=== PATIENT | male | born 1995 | race Caucasian/White ===

== ENCOUNTER 2020-04-24 09:05 | Emergency (ER) | payer OTHER, SELFPAY ==
[2020-04-24] VITALS (7 sets, daily range): BP systolic 100–118; BP diastolic 61–78; PULSE 48–73; RESP 15–16; TEMP 36.4; O2SAT 98–100
[2020-04-24 09:27] LABS: Basophils Percent Auto 0.2 % (0.2-1.2); Eosinophils Absolute Auto 0.2 K/mm3 (0-0.3); Eosinophils Percent Auto 1.7 % (0-4.4); Hematocrit 46.7 % (42.0-52.0); Hemoglobin 16.5 g/dL (14.0-18.0); Immature Granulocyte Absolute 0.03 K/mm3 (0.00-0.031); Immature Granulocyte Percent A 0.3 % (0-0.5); Lymphocytes Absolute Auto 1.77 K/mm3 (0.9-3.2); Mean Corpuscular HGB Conc 35.3 g/dl (32-36); Mean Corpuscular Hemoglobin 33.5 pg (26-34); Mean Corpuscular Volume 94.7 fl (80-100); Mean Platelet Volume 10.1 fl (7.4-10.4); Monocytes Absolute Auto 0.7 K/mm3 (0.1-0.6); Monocytes Percent Auto 6.3 % (2.6-8.5); Neutrophils Percent Auto 76.5 % (45.5-73.1); Platelet Count Result 263 k/mm3 (150-375); Red Blood Count 4.93 M/mm3 (4.6-6.20); White Blood Count 11.8 K/mm3 (4.5-10.0)
[2020-04-24 09:39] LABS: Alanine Aminotransferase 25 U/L (4-50); Albumin Level 4.6 g/dL (3.5-5.1); Alkaline Phosphatase 49 U/L (38-126); Anion Gap 3 mmol/L (8-16); Aspartate Amino Transferase 34 U/L (17-59); Bilirubin,Total 0.6 mg/dL (0.2-1.3); Blood Urea Nitrogen 21 mg/dL (9-20); Calcium 9.5 mg/dL (8.4-10.2); Carbon Dioxide 33 mmol/L (22-30); Chloride 100 mmol/L (98-107); Estimated CRCL calculation 76 ml/min; Estimated Glomerular Filt Rate > 60; Glucose 114 mg/dL (75-110); Lipase 61 U/L (23-300); Potassium 4.1 mmol/L (3.4-5.0); Sodium 136 mmol/L (137-145)
[2020-04-24] MEDS: SODIUM CHLORIDE 0.9% IV 1,000 ML 999 ML IV CONT ×2 (09:57→11:28)
[2020-04-24] MEDS: ONDANSETRON INJ 4 MG/2 ML VIAL IV PUSH (09:57)
[2020-04-24 10:10] LABS: Add Urine Microscopic? YES; Appearance Urine Clear (Clear); Bilirubin Urine Negative (Negative); Blood Urine Negative (Negative); Color Urine Yellow (Yellow); Glucose Urine UA Negative (Negative); Ketones Urine Negative (Negative); Leukocyte Esterase Ur Negative LEU/UL (Negative); Mucus Urine Rare /lpf; Nitrate Urine Negative (Negative); Protein Urine Negative (Negative); Urobilinogen Urine Negative mg/dL (<2.0); WBC Urine 0-3 /hpf
--- NOTE | 2020-04-24 11:13 | ED.NAVMDI ---
HPI - Nausea/Vomiting/Diarrhea General Chief complaint: Nausea/Vomiting/Diarrhea Stated complaint: Multiple Complaints Time Seen by Provider: 04/24/20 09:34 Source: patient Mode of arrival: ambulatory Limitations: no limitations History of Present Illness HPI Narrative: Patient is 24 years old white male wake up this morning with nausea and frequent vomiting at least 10 time, loose stool x2, general body aches, feeling cold. Patient denies history of COVID-19 or exposure to anybody with with known COVID-19 infection. Patient reported that his and kids are doing okay and are asymptomatic. Patient denies any abdominal pain, chest pain or shortness of breath. Possible fever. Related Data Allergies Allergy/AdvReac Type Severity Reaction Status Date / Time Penicillins Allergy Unknown Unknown Verified 04/24/20 09:17 Review of Systems Review of Systems: Narrative: CONSTITUTIONAL: Denies fever, chills, or sweats. EYES: Denies visual changes, redness, or discharge. ENT: Denies rhinorrhea, congestion, sore throat, or otalgia. CARDIOVASCULAR: Denies chest pain, palpitations, or edema. RESPIRATORY: Denies cough or dyspnea. GASTROINTESTINAL: Denies abdominal pain, nausea, vomiting, or diarrhea. GENITOURINARY: Denies dysuria or hematuria. SKIN: Denies rash or itching. MUSCULOSKELETAL: Denies back pain, joint pain, or myalgia. NEUROLOGIC: Denies headache, numbness, or weakness. PSYCHIATRIC: Denies anxiety or depression. PMFSH Social History Social History Smoking status: Smoker, status unknown Alcohol intake: never Exam Narrative: Exam Narrative: General appearance: Well-developed, well-nourished Skin: Normal color Head: Normocephalic, nontraumatic Eyes: Clear conjunctiva ENT: Oropharynx normal, ears normal, nose normal Neck: Supple, nontender Chest and respiratory: Airway patent, no respiratory distress, no accessory muscle use Heart: Regular rate/rhythm Abdomen: Soft, nontender, no organomegaly, quiet bowel sounds Vascular: Normal peripheral pulses, normal capillary refill. 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 Feeling okay to go home. Date: 04/24/20 Time: 12:32 Vital Signs Vital signs: Vital Signs Temperature 36.4 C 04/24/20 09:13 Pulse Rate 58 L 04/24/20 09:13 Respiratory Rate 16 04/24/20 09:13 Blood Pressure 115/73 04/24/20 09:13 Pulse Oximetry 99 04/24/20 09:13 Temperature 36.4 C 04/24/20 09:13 Pulse Rate 53 L 04/24/20 12:22 Respiratory Rate 15 04/24/20 12:22 Blood Pressure 107/69 04/24/20 12:22 Pulse Oximetry 98 04/24/20 12:22 MDM - Nausea/Vomiting/Diarrhea MDM Narrative Medical decision making narrative: Patient presents with gastrointestinal symptoms, viral infection, COVID-19 infection is a possibility. Labs, COVID-19 test, IV fluid ordered. Further plan to follow Differential Diagnosis Differential diagnosis: Likely gastroenteritis, dehydration and other (COVID-19 infection) Lab Data Result diagrams: 04/24/20 09:21 04/24/20 09:21 Labs: Lab Results 04/24/20 04/24/20 04/24/20 Range/Units 09:21 09:21 09:54 WBC 11.8 H (4.5-10.0) K/mm3 RBC 4.93 (4.6-6.20) M/mm3 Hgb 16.5 (14.0-18.0) g/dL Hct 46.7 (42.0-52.0) % MCV 94.7 (80-100) fl MCH 33.5 (26-34) pg MCHC 35.3 (32-36) g/dl RDW 12.0 (11.5-14.5) % Plt Count 263 (1
--- NOTE | 2020-04-24 12:21 | PC.NURSE ---
Pt states he is feeling better, nausea has resolved. Pt able to keep earnest mist down w/ PO challenge. EDP made aware.
[2020-04-24 21:06] LABS: SARS-CoV-2 RNA PCR Negative
== END 2020-04-24 12:40 | disposition home or self-care (01) ==
PROVIDERS: Emergency Provider Emergency Medicine
DX: Z20.822 Contact with and (suspected) exposure to COVID-19 (principal); K52.9 Noninfective gastroenteritis and colitis, unspecified
CPT/HCPCS: 36415; 80053; 81001; 83690; 85025; 96361; 96374; 99284; C9803; J2405; J7030; U0003; U0005

== ENCOUNTER 2020-05-01 23:24 | Emergency (ER) | payer OTHER, SELFPAY ==
--- NOTE | ~2020-05-01 | CT_ITS ---
EXAMINATION: CT abdomen pelvis w con DATE: 05/02/2020 01:03 INDICATION: Right lower quadrant abdominal pain. TECHNIQUE: Computed tomography (CT) of the abdomen and pelvis was performed with 100 mL Omnipaque 350 intravenous contrast. Automated exposure control and iterative reconstruction technique were employe d. The dose-length product was 209.84 mGy-cm. COMPARISON: None. FINDINGS: The visualized portions of the lung bases demonstrate mild atelectasis. No pleural effusion . The heart size is normal. No pericardial effusion. The liver, gallbladder, spleen, pancreas, adrena l glands, and kidneys are normal. There are no dilated loops of bowel. The appendix is normal. There are no pathologically enlarged lymph nodes. There is no free intraperitoneal fluid. The bones are unr emarkable. IMPRESSION: 1. No etiology for the patient's symptoms. Reviewed, dictated and finalized at location A. [employer]
[2020-05-01 23:49] VITALS: BP 116/58; PULSE 100; RESP 20; TEMP 36.7; O2SAT 98
[2020-05-01 23:54] LABS: Basophils Absolute Auto 0.1 K/mm3 (0.0-0.1); Basophils Percent Auto 0.3 % (0.2-1.2); Eosinophils Absolute Auto 0.1 K/mm3 (0-0.3); Eosinophils Percent Auto 0.9 % (0-4.4); Hematocrit 43.9 % (42.0-52.0); Hemoglobin 15.4 g/dL (14.0-18.0); Immature Granulocyte Absolute 0.05 K/mm3 (0.00-0.031); Immature Granulocyte Percent A 0.3 % (0-0.5); Lymphocytes Absolute Auto 2.41 K/mm3 (0.9-3.2); Lymphocytes Percent Auto 16.8 % (18.3-44.2); Mean Corpuscular HGB Conc 35.1 g/dl (32-36); Mean Corpuscular Hemoglobin 33.8 pg (26-34); Mean Corpuscular Volume 96.3 fl (80-100); Mean Platelet Volume 9.9 fl (7.4-10.4); Monocytes Absolute Auto 0.9 K/mm3 (0.1-0.6); Monocytes Percent Auto 5.9 % (2.6-8.5); Neutrophils Absolute Auto 10.9 K/mm3 (1.3-6.7); Neutrophils Percent Auto 75.8 % (45.5-73.1); Platelet Count Result 259 k/mm3 (150-375); Red Blood Count 4.56 M/mm3 (4.6-6.20); White Blood Count 14.3 K/mm3 (4.5-10.0)
[2020-05-02 00:06] LABS: Alanine Aminotransferase 27 U/L (4-50); Albumin Level 4.4 g/dL (3.5-5.1); Alkaline Phosphatase 48 U/L (38-126); Anion Gap 5 mmol/L (8-16); Aspartate Amino Transferase 45 U/L (17-59); Bilirubin,Total 0.9 mg/dL (0.2-1.3); Blood Urea Nitrogen 21 mg/dL (9-20); Carbon Dioxide 35 mmol/L (22-30); Chloride 101 mmol/L (98-107); Estimated Glomerular Filt Rate > 60; Glucose 91 mg/dL (75-110); Lipase 33 U/L (23-300); Potassium 4.2 mmol/L (3.4-5.0); Sodium 141 mmol/L (137-145)
[2020-05-02 00:12] LABS: Add Urine Microscopic? YES; Appearance Urine Clear (Clear); Bilirubin Urine Negative (Negative); Blood Urine Negative (Negative); Color Urine Yellow (Yellow); Glucose Urine UA Negative (Negative); Ketones Urine 1+ mg/dL (Negative); Leukocyte Esterase Ur Negative LEU/UL (Negative); Mucus Urine Rare /lpf; Nitrate Urine Negative (Negative); Protein Urine 1+ mg/dL (Negative); RBC Urine 0-2 /hpf (0-2); Specific Grav Ur 1.025 (1.001-1.035); Squamous Epithelial Cell Urine Rare /hpf (Few); Urobilinogen Urine Negative mg/dL (<2.0); WBC Urine 0-3 /hpf
[2020-05-02] MEDS: KETOROLAC 30 MG/ML VIAL (*BKC) IV PUSH (00:41)
--- NOTE | 2020-05-02 01:23 | ED.ABDPAIN ---
HPI - Abdominal Pain General Chief Complaint: Abdominal Pain Stated Complaint: nausea vomiting abd pain Time Seen by Provider: 05/02/20 00:09 Source: patient Mode of arrival: ambulatory Limitations: no limitations History of Present Illness HPI narrative: 24-year-old with no major medical problems here with complaints of lower abdominal pain on and off for past few days. Patient states that he was at work started having severe lower abdominal cramping. He denies any nausea or vomiting. He states that occasionally he gets chills with abdominal cramping. MD elicited complaint: abdominal pain Pertinent past history: constipation Onset (ago): day(s) (1) Pain Consistency: constant Location: RLQ and LLQ Severity: moderate Quality: cramping Radiation: none Migration to: no migration Exacerbating factors: nothing Relieving factors: nothing Related Data Allergies Allergy/AdvReac Type Severity Reaction Status Date / Time Penicillins Allergy Unknown Unknown Verified 04/24/20 09:17 Review of Systems Review of Systems: All systems reviewed & are unremarkable except as noted in HPI and below Constitutional: Constitutional: Reports no additional constitutional complaints Eyes: Eyes: Reports no additional eye complaints ENT: Reports system reviewed and no additional complaints, except as documented Cardiovascular: Cardiovascular: Reports no additional cardiovascular complaints Respiratory: Respiratory: Reports no additional respiratory complaints Gastrointestinal: Gastrointestinal: Reports as per HPI Musculoskeletal: Musculoskeletal: Reports no additional musculoskeletal complaints Neurologic: Reports system reviewed and no additional complaints, except as documented PMFSH Social History Social History Smoking status: Smoker, status unknown Alcohol intake: never Gender identity (if verbalized by the patient): Male Exam Narrative: Exam Narrative: GENERAL: Well-appearing, well-nourished, and in no acute distress. HEAD: Normocephalic, atraumatic. EYES: PERRLA and EOMI. NECK: Supple. CHEST: Clear to auscultation. No respiratory distress. HEART: Regular rate and rhythm. No murmur heard. Normal peripheral pulses. ABDOMEN: Soft, tender in the lower abd , nondistended, normal active bowel sounds. EXTREMITIES: Normal range of motion. No edema. SKIN: Warm, dry, no rash. NEURO: No focal deficits. Alert and oriented x3. PSYCH: Normal mood and affect. Course Course Emergency Course: Inform patient about his lab work, CT findings advised him high-fiber diet take a laxative . Vital Signs Vital signs: Vital Signs Temperature 36.7 C 05/01/20 23:49 Pulse Rate 100 05/01/20 23:49 Respiratory Rate 20 05/01/20 23:49 Blood Pressure 116/58 L 05/01/20 23:49 Pulse Oximetry 98 05/01/20 23:49 Temperature 36.7 C 05/01/20 23:49 Pulse Rate 100 05/01/20 23:49 Respiratory Rate 20 05/01/20 23:49 Blood Pressure 116/58 L 05/01/20 23:49 Pulse Oximetry 98 05/01/20 23:49 MDM - Abdominal Pain Differential Diagnosis Differential diagnosis: Likely acute appendicitis, constipation and diverticulitis Lab Data Result diagrams: 05/01/20 23:47 05/01/20 23:47 Labs: Lab Results 05/01/20 05/01/20 05/01/20 Range/Units 23:47 23:47 23:57 WBC 14.3 H (4.5-10.0) K/mm3 RBC 4.56 L (4.6-6.20) M/mm3 Hgb 15.4 (14.0-18.0) g/dL Hct 43.9 (42.0-52.0) % MCV 96.3 (80-100) fl MCH 33.8 (26-34) pg MCHC 35.1 (32-36) g/dl RDW 12.0 (11.5-14.5) % Plt Count 259 (150-375) k/mm3 MPV 9.9 (7.4-10.4) fl Immature Gran % (Auto) 0.3 (0-0.5) % Neut % (Auto) 75.8 H (45.5-73.1) % Lymph % (Auto) 16.8 L (18.3-44.2) % [place] % (Auto) 5.9 (2.6-8.5) % Eos % (Auto) 0.9 (0-4.4) % Baso % (Auto) 0.3 (0.2-1.2) % Lymph # (Auto) 2.41 (0.9-3.2) K/mm3 [place] # (Auto) 0.9 H (0.1-0.6)
[2020-05-02 01:53] VITALS: BP 110/61; PULSE 83; RESP 18; O2SAT 98
== END 2020-05-02 01:55 | disposition home or self-care (01) ==
PROVIDERS: Emergency Provider Family Medicine
DX: K59.00 Constipation, unspecified (principal)
CPT/HCPCS: 36415; 74177; 80053; 81001; 83690; 85025; 96374; 99284; J1885; Q9967

== ENCOUNTER 2020-06-30 03:35 | Emergency (ER) | payer OTHER, SELFPAY ==
[2020-06-30] VITALS (16 sets, daily range): BP systolic 92–131; BP diastolic 37–74; PULSE 70–96; RESP 16–19; TEMP 36.1–37.3; O2SAT 80–100
--- NOTE | ~2020-06-30 | XR_ITS ---
EXAMINATION: XR chest 1V portable EXAM DATE: 06/30/2020 05:13 INDICATION: overdose . TECHNIQUE: Portable AP frontal chest x-ray was obtained. Comparison is made to prior examination from 09/18/2015. FINDINGS: Cervical fusion hardware. Possible small amount of right lower lobe medial airspace disease . There are no pleural effusions. The cardiomediastinal silhouette is within normal limits. There i s no pneumothorax suspected. The bones and soft tissues are unremarkable. IMPRESSION: Possible small amount of right lower lobe pneumonia or atelectasis medially. Reviewed, dictated and finalized at location A.
--- NOTE | 2020-06-30 03:46 | ED.OVERDOSE ---
HPI - Overdose General Chief Complaint: Overdose <DO Wally Martell Last Filed: 06/30/20 06:22> Stated Complaint: OD <Cornelio Rm DO - Last Filed: 06/30/20 06:22> Time Seen by Provider: 06/30/20 03:41 <Cornelio Rm DO - Last Filed: 06/30/20 06:22> Source: RN notes reviewed <DO Wally Martell Last Filed: 06/30/20 06:22> History of Present Illness HPI Narrative: Patient presents to emergency department from home via EMS for overdose. EMS arrived to find the patient unresponsive given 4 mg of Narcan intranasally with return to being awake and alert. Patient currently does not answer the question when I asked him what he took. Currently has no complaints at this time denies any recent illness <Cornelio Rm DO - Last Filed: 06/30/20 06:22> Related Data Allergies/Adverse Reactions: Allergies Allergy/AdvReac Type Severity Reaction Status Date / Time Penicillins Allergy Unknown Unknown Verified 06/30/20 10:25 <Cornelio Rm DO - Last Filed: 06/30/20 06:22> Review of Systems Review of Systems: Narrative: Gen.: Denies fevers or chills ENT: Denies congestion Respiratory: Denies shortness of breath or cough CV: Denies chest pain GI: Denies abdominal pain nausea, emesis Musculoskeletal: Denies back pain or muscle pain Neuro: Denies headache Skin: Denies rash Except as documented, all other systems reviewed and negative <DO Wally Martell Last Filed: 06/30/20 06:22> PMFSH Past Medical History Medical History: Medical History (Updated 06/30/20 @ 11:54 by Cornelio Hopson MD) Patient denies significant medical history <Cornelio Rm DO - Last Filed: 06/30/20 06:22> Social History Social History: Social History Smoking status: Smoker, status unknown Alcohol intake: never Gender identity (if verbalized by the patient): Male <Cornelio Rm DO - Last Filed: 06/30/20 06:22> Exam Narrative: Exam Narrative: APPEARANCE: No acute distress, nontoxic, resting in bed EYES: EOMI HEENT: Normocephalic, atraumatic, OMM RESPIRATORY: No respiratory distress Clear to auscultation bilaterally with no rhonchi wheezing or rales. CARDIOVASCULAR: Regular rate and rhythm without murmurs rubs or gallops. ABDOMINAL: Soft, nontender, nondistended, no rebound or guarding MUSCULOSKELETAl: Moves all extremities. NEURO: Awake and alert x 4. Following commands, speech normal, no focal deficits SKIN:: Warm, dry. No rashes lesions or abrasions PSYCHIATRIC: Normal affect/mood, <Cornelio Rm DO - Last Filed: 06/30/20 06:22> Course Vital Signs Vital signs: Vital Signs Temperature 36.4 C L 06/30/20 03:42 Pulse Rate 96 06/30/20 03:42 Respiratory Rate 16 06/30/20 03:42 Blood Pressure 103/60 06/30/20 03:42 Pulse Oximetry 97 06/30/20 03:42 Temperature 36.1 C L 06/30/20 05:39 Pulse Rate 86 06/30/20 08:46 Respiratory Rate 16 06/30/20 08:46 Blood Pressure 107/56 L 06/30/20 11:47 Pulse Oximetry 96 06/30/20 11:01 <Cornelio Rm DO - Last Filed: 06/30/20 06:22> Vital Signs Temperature 36.4 C L 06/30/20 03:42 Pulse Rate 96 06/30/20 03:42 Respiratory Rate 16 06/30/20 03:42 Blood Pressure 103/60 06/30/20 03:42 Pulse Oximetry 97 06/30/20 03:42 Temperature 36.1 C L 06/30/20 05:39 Pulse Rate 86 06/30/20 08:46 Respiratory Rate 16 06/30/20 08:46 Blood Pressure 107/56 L 06/30/20 11:47 Pulse Oximetry 96 06/30/20 11:01 <Cornelio Hopson MD - Last Filed: 06/30/20 11:57> MDM - Overdose MDM Narrative Medical decision making narrative: Patient's right consulted 18.4 possibly due to the methamphetamine use. Patient's oxygen saturation been 98 to 100% on room air, he is not afebrile, his vital signs is stable. He does have an infiltrate on his chest x-ray we will treat this with IV antibiotics and placed
[2020-06-30] MEDS: ONDANSETRON HCL ODT 4 MG TABLET PO (05:26)
--- NOTE | 2020-06-30 05:37 | PC.NURSE ---
pt was given drug rehab resourses with spouse at bedside
--- NOTE | 2020-06-30 07:17 | PC.NURSE ---
Report received from CASEY Jiang. Pt sleeping sounding on stretcher, when awoken, pt vomits clear liquid on the floor and is wretching loudly. Requests something else to drink, explained will continue to observe. Requests water po, and made aware of nothing to drink until nausea subsides.
--- NOTE | 2020-06-30 08:45 | PC.NURSE ---
Pt resting comfortably on stretcher, easily arousable. Requesting water po.
--- NOTE | 2020-06-30 09:47 | PC.NURSE ---
Pt awake, wretching loudly, screaming I need something to drink!! . Explained that will not give something to drink if he continues to vomit. Pt has no IV access, note dried blood where an access appeared to be. Pt states does not use drugs every day, and unable to recall the last time he used, possibly it was 1.5 yrs ago. Preparing to initiate IV access.
[2020-06-30] MEDS: SODIUM CHLORIDE 0.9% IV 1,000 ML 999 ML IV CONT (09:54)
[2020-06-30] MEDS: ONDANSETRON INJ 4 MG/2 ML VIAL IV PUSH (09:54)
[2020-06-30 09:56] LABS: Basophils Absolute Auto 0.1 K/mm3 (0.0-0.1); Basophils Percent Auto 0.3 % (0.2-1.2); Hematocrit 47.3 % (42.0-52.0); Hemoglobin 17.1 g/dL (14.0-18.0); Immature Granulocyte Percent A 0.5 % (0-0.5); Lymphocytes Absolute Auto 0.68 K/mm3 (0.9-3.2); Lymphocytes Percent Auto 3.7 % (18.3-44.2); Mean Corpuscular HGB Conc 36.2 g/dl (32-36); Mean Corpuscular Hemoglobin 34.2 pg (26-34); Mean Corpuscular Volume 94.6 fl (80-100); Monocytes Absolute Auto 1.4 K/mm3 (0.1-0.6); Monocytes Percent Auto 7.7 % (2.6-8.5); Neutrophils Absolute Auto 16.1 K/mm3 (1.3-6.7); Neutrophils Percent Auto 87.8 % (45.5-73.1); Platelet Count Result 257 k/mm3 (150-375); Red Cell Distribution Width 12.2 % (11.5-14.5); White Blood Count 18.4 K/mm3 (4.5-10.0)
[2020-06-30 10:08] LABS: Alanine Aminotransferase 28 U/L (4-50); Albumin Level 4.6 g/dL (3.5-5.1); Alkaline Phosphatase 52 U/L (38-126); Anion Gap 9 mmol/L (8-16); Aspartate Amino Transferase 41 U/L (17-59); Bilirubin,Total 1.3 mg/dL (0.2-1.3); Blood Urea Nitrogen 15 mg/dL (9-20); Calcium 9.1 mg/dL (8.4-10.2); Carbon Dioxide 26 mmol/L (22-30); Chloride 104 mmol/L (98-107); Estimated CRCL calculation 71 ml/min; Estimated Glomerular Filt Rate > 60; Glucose 101 mg/dL (75-110); Lipase 25 U/L (23-300); Potassium 4.4 mmol/L (3.4-5.0); Sodium 139 mmol/L (137-145)
--- NOTE | 2020-06-30 10:25 | PC.NURSE ---
Pt's Gracy contacted per patient request for her to call work and let them know he will not be coming to work today. Pt drinking earnest mist. IVF continue to infuse. Pt states feels great laughing at TV show. Denies needs at present.
[2020-06-30 10:31] LABS: Add Urine Microscopic? YES; Appearance Urine Clear (Clear); Bilirubin Urine Negative (Negative); Blood Urine Negative (Negative); Color Urine Yellow (Yellow); Glucose Urine UA 2+ mg/dL (Negative); Ketones Urine 1+ mg/dL (Negative); Leukocyte Esterase Ur Negative LEU/UL (Negative); Nitrate Urine Negative (Negative); Protein Urine 1+ mg/dL (Negative); Urobilinogen Urine Negative mg/dL (<2.0)
[2020-06-30 10:42] LABS: Amphetamine Screen Urine Positive (Negative); Barbiturate Screen Urine Negative (Negative); Benzodiazepines Screen Urine Negative (Negative); Cannabinoid Screen Urine Positive (Negative); Cocaine Screen Urine Negative (Negative); Methadone Screen Urine Negative (Negative); Opiate Screen Urine Positive (Negative); Phencyclidine Screen Urine Negative (Negative)
[2020-06-30 11:00] LABS: Squamous Epithelial Cell Urine Few /hpf (Few)
--- NOTE | 2020-06-30 11:37 | PC.NURSE ---
Pt has not vomited earnest mist given earlier, requesting a 2nd one and given.
--- NOTE | 2020-06-30 12:30 | PC.NURSE ---
Lunch tray ordered
--- NOTE | 2020-06-30 12:37 | PC.NURSE ---
Lunch tray given. Pt's IV abx continues to infuse.
--- NOTE | 2020-06-30 13:21 | PC.NURSE ---
Pt has finished lunch tray, states is feeling better at present. Azithromycin continues to infuse.
--- NOTE | 2020-06-30 13:33 | PC.NURSE ---
Report to CASEY Morgan, to continue care.
== END 2020-06-30 15:20 | disposition home or self-care (01) ==
PROVIDERS: Emergency Provider Emergency Medicine
DX: T40.2X1A Poisoning by other opioids, accidental (unintentional), initial encounter (principal); J18.9 Pneumonia, unspecified organism
CPT/HCPCS: 36415; 71045; 80053; 80307; 81001; 83690; 85025; 96361; 96365; 96366; 96375; 99284; A9270; J0456; J0696; J2405; J7030

== ENCOUNTER 2020-07-21 03:48 | Emergency (ER) | payer OTHER, SELFPAY ==
[2020-07-21 03:54] VITALS: BP 116/60; PULSE 99; RESP 18; TEMP 36.6; O2SAT 98
--- NOTE | 2020-07-21 04:28 | ED.GENADULT ---
HPI - General Adult General Chief complaint: Unspecified Stated complaint: using fentanyl Time Seen by Provider: 07/21/20 03:50 Source: RN notes reviewed History of Present Illness HPI narrative: Patient presents to emergency department from home via EMS for opioid use. Patient states he is a daily snorer of fentanyl he states that he last use approximately 4 hours ago. He states that he is wishing to go to rehab at this time and quit using the fentanyl states his grandmother called EMS tonight so the patient could come to be evaluated for detox. Patient denies any current illness he denies any fevers or chills or shortness of breath Related Data Allergies Allergy/AdvReac Type Severity Reaction Status Date / Time Penicillins Allergy Unknown Unknown Verified 06/30/20 10:25 Review of Systems Review of Systems: Narrative: Gen.: Denies fevers or chills ENT: Denies congestion Respiratory: Denies shortness of breath or cough CV: Denies chest pain or palpitations GI: Denies abdominal pain nausea, emesis Musculoskeletal: Denies back pain or muscle pain Neuro: Denies numbness, tingling, weakness or focal weakness Skin: Denies rash Except as documented, all other systems reviewed and negative [facility] Past Medical History Medical History Patient denies significant medical history Social History Social History Smoking status: Smoker, status unknown Alcohol intake: never Substance use type: marijuana and other Gender identity (if verbalized by the patient): Male Exam Narrative: Exam Narrative: APPEARANCE: No acute distress, nontoxic, resting in bed EYES: EOMI HEENT: Normocephalic, atraumatic, OMM RESPIRATORY: No respiratory distress Clear to auscultation bilaterally with no rhonchi wheezing or rales. CARDIOVASCULAR: Regular rate and rhythm without murmurs rubs or gallops. ABDOMINAL: Soft, nontender, nondistended, no rebound or guarding MUSCULOSKELETAl: Moves all extremities. No clubbing, cyanosis or edema. NEURO: Awake and alert x 4. Following commands, speech normal, no focal deficits SKIN:: Warm, dry. Several small superficial lesions on arms and legs with no signs of infection PSYCHIATRIC: Normal affect/mood, denies suicidal or homicidal ideation Course Course Emergency Course: Discussed with patient for no rehabilitation programs patient was given resources Discussed with patient results of workup and diagnosis. Discussed need for follow-up with primary care, proper use of medication, and reasons to return to the emergency department. Patient understands and agrees to current treatment plan Vital Signs Vital signs: Vital Signs Temperature 97.8 F 07/21/20 03:54 Pulse Rate 99 07/21/20 03:54 Respiratory Rate 18 07/21/20 03:54 Blood Pressure 116/60 07/21/20 03:54 Pulse Oximetry 98 07/21/20 03:54 Temperature 97.8 F 07/21/20 03:54 Pulse Rate 99 07/21/20 03:54 Respiratory Rate 18 07/21/20 03:54 Blood Pressure 116/60 07/21/20 03:54 Pulse Oximetry 98 07/21/20 03:54 Medical Decision Making Vital Signs Vital Signs: Vital Signs Temperature 97.8 F 07/21/20 03:54 Pulse Rate 99 07/21/20 03:54 Respiratory Rate 18 07/21/20 03:54 Blood Pressure 116/60 07/21/20 03:54 Pulse Oximetry 98 07/21/20 03:54 Temperature 97.8 F 07/21/20 03:54 Pulse Rate 99 07/21/20 03:54 Respiratory Rate 18 07/21/20 03:54 Blood Pressure 116/60 07/21/20 03:54 Pulse Oximetry 98 07/21/20 03:54 Discharge Plan Discharge Clinical Impression: Opioid abuse Patient Disposition: Home, Self-Care Condition: Stable Instructions: Antibiotic Form, Opioid Use Disorder (ED) Prescriptions: No Action doxycycline hyclate 100 mg capsule 100 mg PO BID 7 Days Qty: 14 RF: 0 ondansetron HCl [Zofran] 4 mg tablet 4 mg PO Q6H PRN (Reason: nausea and vomiting) Qty
--- NOTE | 2020-07-21 04:53 | PC.NURSE ---
Pt given list of resources for opiate abuse and drug detox. pt verbalizes understanding but needs further reinforcent. Pt did not arrive c cell phone, and requests this RN call his grandma to pick him up. Per ems, pt lives c grandparents and grandma is the one who initially contacted EMS. Pt cannot remember grandma's phone number, and no info found on face sheet/emergency contact list.This RN called [facility] non-emergency number; informed by pd that an officer will go to pt's home to update family and request ride back home. Pt ambulatory to ED waiting room; business transformation manager updated on pending ride for pt.
== END 2020-07-21 05:12 | disposition home or self-care (01) ==
PROVIDERS: Emergency Provider Emergency Medicine
DX: F11.10 Opioid abuse, uncomplicated (principal)
CPT/HCPCS: 99281

== ENCOUNTER 2020-12-29 13:07 | Emergency (ER) | payer OTHER, SELFPAY ==
[2020-12-29] VITALS (14 sets, daily range): BP systolic 103–138; BP diastolic 49–116; PULSE 68–100; RESP 11–20; O2SAT 95–100
--- NOTE | ~2020-12-29 | XR_ITS ---
EXAMINATION: XR chest 1V portable DATE: 12/29/2020 15:29 INDICATION: Leukocytosis TECHNIQUE: frontal and lateral views of the chest were obtained. COMPARISON: Chest radiograph dated 06/30/20 FINDINGS: The lungs remain clear with no focal airspace opacities, pulmonary edema, pleural effusion or pneumot horax. The cardiomediastinal silhouette is normal. Bilateral vertical nataly and lateral mass/pedicle sc rew fixation for posterior spinal fusion at C6-T1. IMPRESSION: 1. No acute cardiopulmonary disease. Reviewed, dictated and finalized at location A.
--- NOTE | ~2020-12-29 | CT_ITS ---
EXAMINATION: CT brain wo con DATE: 12/29/2020 20:21 INDICATION: Unresponsive. TECHNIQUE: Computed tomography (CT) of the head was performed without intravenous contrast. The mA wa s adjusted according to patient size. Iterative reconstruction technique was employed. The dose-lengt h product was 605.33 mGy-cm. COMPARISON: Head CT 07/24/2012 FINDINGS: There is no intracranial hemorrhage, acute infarction, or abnormal intracranial mass lesion . The ventricles are normal in size. There is mild mucosal thickening in the ethmoid sinuses. The orb its are normal. The mastoid air cells are normal. IMPRESSION: 1. Normal brain. Reviewed, dictated and finalized at location A. IMPRESSION: 1. Normal brain.
--- NOTE | 2020-12-29 13:12 | ECG_ITS ---
Measurements Intervals [employer] Rate: 92 P: 129 NE: 130 QRS: 127 QRSD: 94 T: 167 QT: 331 QTc: 411 Interpretive Statements SINUS RHYTHM LIMB LEAD REVERSAL INCOMPLETE RIGHT BUNDLE BRANCH BLOCK BASELINE ARTIFACT- I, III, AVL, V4-V6 BORDERLINE ECG Electronically Signed On 12-29-2020 14:42:44 CDT by Clive Bernstein D.O.
[2020-12-29 13:50] LABS: Add Urine Microscopic? YES; Appearance Urine Clear (Clear); Bilirubin Urine Negative (Negative); Blood Urine Negative (Negative); Color Urine Yellow (Yellow); Glucose Urine UA 3+ mg/dL (Negative); Ketones Urine Negative (Negative); Leukocyte Esterase Ur Negative LEU/UL (Negative); Mucus Urine Rare /lpf; Nitrate Urine Negative (Negative); Protein Urine 2+ mg/dL (Negative); Specific Grav Ur 1.014 (1.001-1.035); Urobilinogen Urine Negative mg/dL (<2.0)
[2020-12-29 13:55] LABS: Basophils Percent Auto 0.2 % (0.2-1.2); Eosinophils Absolute Auto 0.1 K/mm3 (0-0.3); Eosinophils Percent Auto 0.4 % (0-4.4); Hematocrit 43.7 % (42.0-52.0); Hemoglobin 15.2 g/dL (14.0-18.0); Immature Granulocyte Absolute 0.08 K/mm3 (0.00-0.031); Immature Granulocyte Percent A 0.5 % (0-0.5); Lymphocytes Absolute Auto 1.32 K/mm3 (0.9-3.2); Lymphocytes Percent Auto 8.1 % (18.3-44.2); Mean Corpuscular HGB Conc 34.8 g/dl (32-36); Mean Corpuscular Volume 97.8 fl (80-100); Mean Platelet Volume 9.9 fl (7.4-10.4); Monocytes Absolute Auto 0.9 K/mm3 (0.1-0.6); Monocytes Percent Auto 5.6 % (2.6-8.5); Neutrophils Absolute Auto 13.9 K/mm3 (1.3-6.7); Neutrophils Percent Auto 85.2 % (45.5-73.1); Platelet Count Result 210 k/mm3 (150-375); Red Blood Count 4.47 M/mm3 (4.6-6.20); Red Cell Distribution Width 12.6 % (11.5-14.5); White Blood Count 16.3 K/mm3 (4.5-10.0)
[2020-12-29 14:02] LABS: Amphetamine Screen Urine Negative (Negative); Barbiturate Screen Urine Negative (Negative); Benzodiazepines Screen Urine Negative (Negative); Cannabinoid Screen Urine Negative (Negative); Cocaine Screen Urine Negative (Negative); Methadone Screen Urine Negative (Negative); Opiate Screen Urine Negative (Negative); Phencyclidine Screen Urine Negative (Negative)
[2020-12-29 14:06] LABS: Alanine Aminotransferase 32 U/L (4-50); Albumin Level 4.3 g/dL (3.5-5.1); Alkaline Phosphatase 43 U/L (38-126); Anion Gap 7 mmol/L (8-16); Aspartate Amino Transferase 42 U/L (17-59); Bilirubin,Total 0.8 mg/dL (0.2-1.3); Blood Urea Nitrogen 11 mg/dL (9-20); Calcium 8.9 mg/dL (8.4-10.2); Carbon Dioxide 32 mmol/L (22-30); Chloride 101 mmol/L (98-107); Estimated CRCL calculation 76 ml/min; Estimated Glomerular Filt Rate > 60; Glucose 136 mg/dL (65-110); Potassium 3.4 mmol/L (3.4-5.0); Sodium 140 mmol/L (137-145)
[2020-12-29 14:07] LABS: Acetaminophen < 10 ug/mL (10-30); Ethanol < 10 mg/dL (<10); Salicylate < 1.0 mg/dL (2-20)
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
--- NOTE | 2020-12-29 15:14 | PC.NURSE ---
patient tray ordered for lunch
--- NOTE | 2020-12-29 15:23 | ED.OVERDOSE ---
HPI - Overdose General Chief Complaint: Overdose Stated Complaint: OD Time Seen by Provider: 12/29/20 14:37 Source: patient, family and EMS Mode of arrival: EMS Limitations: altered mental status History of Present Illness HPI Narrative: This is a 25-year-old male that presents to the emergency department for an overdose today. Reportedly had used fentanyl. Was found at home unresponsive. Was given intranasal Narcan and EMS was called. EMS gave Narcan intravenously and Zofran. Patient is still somewhat drowsy. His only complaint currently is a headache. Related Data Allergies Allergy/AdvReac Type Severity Reaction Status Date / Time Penicillins Allergy Unknown Unknown Verified 06/30/20 10:25 Review of Systems Review of Systems: CONSTITUTIONAL: Denies fever CARDIOVASCULAR: Denies chest pain RESPIRATORY: Denies dyspnea. GASTROINTESTINAL: Denies nausea, vomiting All systems reviewed & are unremarkable except as noted in HPI and below PMFSH Past Medical History Medical History Patient denies significant medical history Social History Social History Smoking status: Smoker, status unknown Alcohol intake: never Substance use type: opiates and prescription drug Gender identity (if verbalized by the patient): Male Exam Narrative: GENERAL: Well-appearing, well-nourished, and in no acute distress. HEAD: Normocephalic, atraumatic. EYES: PERRLA and EOMI. ENT: Nares clear, no rhinorrhea or epistaxis. Mucous membranes moist. Oropharynx without tonsillar hypertrophy exudate or other lesions. Bilateral TMs pearly osorio non-bulging NECK: Supple. No adenopathy or masses. CHEST: Clear to auscultation. No respiratory distress. No wheezes rales or rhonchi HEART: Regular rate and rhythm. No murmur heard. Normal peripheral pulses. EXTREMITIES: Normal range of motion. No edema. SKIN: Warm, dry, no rash. NEURO: No focal deficits. Alert and oriented x3. Cranial nerves II through XII grossly intact PSYCH: Normal mood and affect Course Vital Signs Vital signs: Vital Signs Pulse Rate 96 12/29/20 13:10 Respiratory Rate 14 12/29/20 13:10 Pulse Oximetry 100 12/29/20 13:10 Pulse Rate 68 12/29/20 19:52 Respiratory Rate 12 12/29/20 19:52 Blood Pressure 121/75 12/29/20 19:52 Pulse Oximetry 99 12/29/20 19:52 MDM - Overdose MDM Narrative Medical decision making narrative: Patient presents to the emergency department after an overdose today on fentanyl. Found at home unresponsive. Given intranasal Narcan. EMS was called and gave Narcan intravenously. Upon arrival patient was a little bit drowsy. Patient is neurologically intact. His vitals are stable. CBC with leukocytosis to 16.3. Metabolic panel without concerning findings. UA with 7-9 white blood cells, although no leukoesterase or nitrates. Patient denies any urinary symptoms. This will be sent for culture. TSH is normal. Alcohol level is negative. Urine drug screen was negative as well. Chest x-ray without acute cardiopulmonary abnormality. CT scan of the brain is without acute findings. Patient was hydrated in the ED and treated for his headache. He is alert and oriented and ambulating with a steady gait. Would like to go home. Has a ride. Was given resources and instructed to stop doing drugs. He is to follow-up with primary care doctor. He was given warnings to return to ER Lab Data Attestation: I reviewed the patient's lab results. Result diagrams: 12/29/20 13:47 12/29/20 13:47 Labs: Lab Results 12/29/20 12/29/20 12/29/20 Range/Units 13:35 13:36 13:36 WBC (4.5-10.0) K/mm3 RBC (4.6-6.20) M/mm3 Hgb (14.0-18.0) g/dL Hct (42.0-52.0) % MCV (80-100) fl MCH (26-34) pg MCHC (32-36) g/dl RDW (11.5-14.5) % Plt Count (150-375) k/mm3 MPV (7.4-10.4) f
[2020-12-29 15:54] LABS: Hemoglobin A1C 4.7 % (<5.7)
[2020-12-29] MEDS: SODIUM CHLORIDE 0.9% IV 1,000 ML 999 ML IV CONT (17:04)
--- NOTE | 2020-12-29 19:01 | PC.NURSE ---
waiting on meds from pharmacy
[2020-12-29] MEDS: IBUPROFEN IV 400 MG in SODIUM CHLORIDE 0.9% IV 100 ML 200 MG IVPB (19:51)
== END 2020-12-29 21:06 | disposition home or self-care (01) ==
PROVIDERS: Physician Assistant; Emergency Provider Emergency Medicine
DX: T50.901A Poisoning by unspecified drugs, medicaments and biological substances, accidental (unintentional), initial encounter (principal); Z88.0 Allergy status to penicillin
CPT/HCPCS: 36415; 70450; 71045; 80053; 80307; 81001; 83036; 84443; 85025; 87086; 93005; 96361; 96365; 96367; 99284; J0131; J1741; J7030